=== PATIENT | female | born 1970 | race African-American/Black ===

== ENCOUNTER 2023-09-04 20:45 | Inpatient (IN) | payer MEDICAID, OTHER ==
[~2023-09-04] VITALS: Ht 167.6 cm; Wt 55.3 kg
[~2023-09-04 20:45] MED LIST: QUET50TA GT
[2023-09-04 21:30] VITALS: O2SAT 100
[2023-09-04] MEDS: IV LR 1000 ML 1,000 ML BAG IV ONE ×2 (21:30→23:25)
[2023-09-04] MEDS ORDERED: PIPERACI/TAZO 3.375GM/D5W 50ML PB IV ONE (21:38)
[2023-09-04] MEDS: PIPERACILLIN /TAZOBACTAM 3.375 G in IV D5W 50 ML IV ONE (21:43)
[2023-09-04 21:46] LABS: BASOPHILS % (AUTO) 0.3 % (0.0-2.0); EOSINOPHILS # (AUTO) 0.4 K/uL (0.0-0.7); EOSINOPHILS % (AUTO) 2.4 % (0.0-6.0); HEMATOCRIT 29 % (33-45); HEMOGLOBIN 9.5 g/dL (11.5-14.8); LYMPHOCYTES # (AUTO) 2.1 K/uL (0.8-4.8); LYMPHOCYTES % (AUTO) 13.3 % (20.0-44.0); MEAN CORPUSCULAR HEMOGLOBIN 28 PG (26.0-33.0); MEAN CORPUSCULAR HGB CONC 33 g/dl (31.0-36.0); MEAN CORPUSCULAR VOLUME 86 fL (82-100); MONOCYTES # (AUTO) 1.1 K/uL (0.1-1.30); MONOCYTES % (AUTO) 7.1 % (2.0-12.0); NEUTROPHILS # (AUTO) 12.2 K/uL (1.8-8.9); NEUTROPHILS % (AUTO) 76.9 % (43.0-81.0); PLATELET COUNT (AUTO) 508 K/uL (150-450); RED BLOOD CELL COUNT(AUTO) 3.39 MIL/uL (4.0-5.2); RED CELL DISTRIBUTION WIDTH 14.6 % (11.5-15.0); WHITE BLOOD COUNT (AUTO) 15.9 K/uL (4.3-11.0)
[2023-09-04 21:59] LABS: INR 1.04 (0.91-1.10)
[2023-09-04 22:03] LABS: LACTIC ACID 1.1 mmol/L (0.4-2.0)
[2023-09-04 22:04] LABS: APPEARANCE,URINE CLEAR (CLEAR); BILIRUBIN,URINE NEGATIVE (NEGATIVE); BLOOD, URINE NEGATIVE Ery/uL (NEGATIVE); COLOR,URINE YELLOW (YELLOW); KETONES,URINE NEGATIVE (NEGATIVE); LEUKOCYTE ESTERASE ,URINE 2+ (NEGATIVE); NITRITE, URINE POSITIVE (NEGATIVE); PROTEIN,URINE 1+ mg/dl (NEGATIVE); UGLUCOSE NEGATIVE (NEGATIVE); UROBILINOGEN,URINE 0.2 EU/dL (0.2)
[2023-09-04] MEDS ORDERED: VANCOMYCIN 1 GM /D5W 250 ML PB IV ONE (22:08)
[2023-09-04] MEDS: VANCOMYCIN 1 GM in IV D5W 250 ML IV ONE (22:10)
[2023-09-04 22:13] LABS: ALANINE AMINOTRANSFERASE 229 U/L (12-78); ALBUMIN 2.3 g/dL (3.4-5.0); ALKALINE PHOSPHATASE 159 U/L (46-116); ASPARTATE AMINOTRANSFERASE 146 U/L (15-37); BILIRUBIN,DIRECT 0.1 mg/dL (0.0-0.2); BILIRUBIN,TOTAL 0.2 mg/dL (0.2-1.0); CALCIUM, SERUM 11.3 mg/dL (8.5-10.1); CARBON DIOXIDE 25 mmol/L (21-32); CHLORIDE 99 mmol/L (98-107); CREATININE 2.2 mg/dL (0.6-1.3); GLUCOSE 110 mg/dL (74-106); POTASSIUM 5.7 mmol/L (3.5-5.1); SODIUM SERUM 135 mmol/L (136-145); UREA NITROGEN, BLOOD 68 mg/dL (7-18)
[2023-09-04] MEDS ORDERED: IOHEXOL-300 100 ML VIAL IV ONE (22:22)
[2023-09-04] MEDS ORDERED: IV NS 0.9% 250 ML IV ONE (22:22)
[2023-09-04 22:39] LABS: ADD URINE CULTURE YES; BACTERIA,URINE 3+ /HPF (None Seen); RBC,URINE 0-2 /HPF (0-2)
[2023-09-04 22:40] LABS: MUCUS,URINE Moderate /LPF (None Seen)
[2023-09-04] MEDS ORDERED: ACETAMINOPHEN 650 MG/SUPP.RECT RC ONE (23:32)
[2023-09-04] MEDS: ACETAMINOPHEN 650 MG/SUPP.RECT RC ONE (23:34)
[2023-09-05] VITALS (8 sets, daily range): BP systolic 87–92; BP diastolic 60–76; TEMP 98.7–98.9; O2SAT 92–100
[2023-09-05] MEDS ORDERED: GABA-532 GT (04:19)
[2023-09-05] MEDS ORDERED: POLY17PO4 GT (04:19)
[2023-09-05] MEDS ORDERED: HYDR-4076 GT (04:19)
[2023-09-05] MEDS ORDERED: LISI20TA30 GT (04:19)
[2023-09-05] MEDS ORDERED: DOCU-270 GT (04:19)
[2023-09-05] MEDS ORDERED: ALBU2.5V13 NEB (04:19)
[2023-09-05] MEDS ORDERED: AMLO5TAB4 GT (04:19)
[2023-09-05] MEDS: PIPERACILLIN /TAZOBACTAM 3.375 G in IV D5W 50 ML IV SCH (08:00)
[2023-09-05 08:05] LABS: BASOPHILS # (AUTO) 0.1 K/uL (0.0-0.2); BASOPHILS % (AUTO) 0.3 % (0.0-2.0); EOSINOPHILS # (AUTO) 0.1 K/uL (0.0-0.7); EOSINOPHILS % (AUTO) 0.3 % (0.0-6.0); HEMATOCRIT 26 % (33-45); HEMOGLOBIN 8.2 g/dL (11.5-14.8); LYMPHOCYTES # (AUTO) 1.5 K/uL (0.8-4.8); LYMPHOCYTES % (AUTO) 4.5 % (20.0-44.0); MEAN CORPUSCULAR HEMOGLOBIN 28 PG (26.0-33.0); MEAN CORPUSCULAR HGB CONC 32 g/dl (31.0-36.0); MEAN CORPUSCULAR VOLUME 87 fL (82-100); MONOCYTES # (AUTO) 2.4 K/uL (0.1-1.30); MONOCYTES % (AUTO) 7.4 % (2.0-12.0); NEUTROPHILS % (AUTO) 87.5 % (43.0-81.0); PLATELET COUNT (AUTO) 386 K/uL (150-450); RED BLOOD CELL COUNT(AUTO) 2.95 MIL/uL (4.0-5.2); RED CELL DISTRIBUTION WIDTH 14.4 % (11.5-15.0)
[2023-09-05 08:17] LABS: WHITE BLOOD COUNT (AUTO) 33.1 K/uL (4.3-11.0)
[2023-09-05 08:25] LABS: CALCIUM, SERUM 10.5 mg/dL (8.5-10.1); CREATININE 1.9 mg/dL (0.6-1.3); POTASSIUM 4.9 mmol/L (3.5-5.1)
[2023-09-05] MEDS ORDERED: ACETAMINOPHEN 650 MG/SUPP.RECT RC ONE (08:43)
[2023-09-05] MEDS: ACETAMINOPHEN 325 MG TABLET PO PRN (09:04)
[2023-09-05] MEDS ORDERED: ACET325T53 PO (09:14)
[2023-09-05] MEDS ORDERED: BISA10SU11 RC (09:14)
[2023-09-05] MEDS ORDERED: HEPA50008 SQ (09:14)
[2023-09-05] MEDS ORDERED: GABA250S2 GT (09:14)
[2023-09-05] MEDS ORDERED: CHLO473M5 PO (09:14)
[2023-09-05] MEDS ORDERED: ACET-637 PO (09:14)
[2023-09-05] MEDS ORDERED: MAGN400O6 GT (09:14)
[2023-09-05 12:28] LABS: BAND % (MANUAL) 16 % (0.0-5.0); EOSINOPHILS % (MANUAL) 2 % (0-4); LYMPHOCYTES % (MANUAL) 2 % (16-48); MONOCYTES % (MANUAL) 10 % (0-11.0); NEUTROPHILS % (MANUAL) 70 (42-76)
[2023-09-05 12:29] LABS: PLATELET ESTIMATE ADEQUATE
[2023-09-05] MEDS: IV NS 0.9% 1,000 ML IV PRN (13:14)
[2023-09-05] MEDS: IV NS 0.9% 500 ML IV ONE (17:15)
[2023-09-06] VITALS (27 sets, daily range): BP systolic 75–123; BP diastolic 57–83; TEMP 97.5–101.8; O2SAT 94–100
[2023-09-06] MEDS: IV NS 0.9% 1,000 ML IV ONE (02:03)
[2023-09-06] MEDS: VANCOMYCIN HCL 1.25 GM in IV D5W 250 ML IV SCH (08:47)
[2023-09-06 09:14] LABS: BASOPHILS % (AUTO) 0.2 % (0.0-2.0); BILIRUBIN,TOTAL 0.4 mg/dL (0.2-1.0); CALCIUM, SERUM 9.4 mg/dL (8.5-10.1); CREATININE 2.1 mg/dL (0.6-1.3); EOSINOPHILS # (AUTO) 0.3 K/uL (0.0-0.7); EOSINOPHILS % (AUTO) 1.1 % (0.0-6.0); HEMATOCRIT 22 % (33-45); LYMPHOCYTES # (AUTO) 1.6 K/uL (0.8-4.8); LYMPHOCYTES % (AUTO) 6.3 % (20.0-44.0); MAGNESIUM 1.9 mg/dL (1.8-2.4); MEAN CORPUSCULAR HEMOGLOBIN 28 PG (26.0-33.0); MEAN CORPUSCULAR HGB CONC 32 g/dl (31.0-36.0); MEAN CORPUSCULAR VOLUME 88 fL (82-100); MONOCYTES # (AUTO) 2.1 K/uL (0.1-1.30); MONOCYTES % (AUTO) 8.2 % (2.0-12.0); NEUTROPHILS # (AUTO) 21.7 K/uL (1.8-8.9); NEUTROPHILS % (AUTO) 84.2 % (43.0-81.0); PHOSPHORUS 4.1 mg/dL (2.5-4.9); PLATELET COUNT (AUTO) 328 K/uL (150-450); POTASSIUM 4.3 mmol/L (3.5-5.1); RED BLOOD CELL COUNT(AUTO) 2.47 MIL/uL (4.0-5.2); RED CELL DISTRIBUTION WIDTH 14.5 % (11.5-15.0); TOTAL PROTEIN, SERUM 7.2 g/dL (6.4-8.2); WHITE BLOOD COUNT (AUTO) 25.8 K/uL (4.3-11.0)
[2023-09-06 09:23] LABS: ALBUMIN 1.4 g/dL (3.4-5.0); HEMOGLOBIN 6.9 g/dL (11.5-14.8)
[2023-09-06 12:33] LABS: ANISOCYTOSIS 1+; BAND % (MANUAL) 11 % (0.0-5.0); BASOPHILS % (MANUAL) 0 % (0.0-2.0); EOSINOPHILS % (MANUAL) 2 % (0-4); HYPOCHROMASIA 1+; LYMPHOCYTES % (MANUAL) 5 % (16-48); MONOCYTES % (MANUAL) 9 % (0-11.0); NEUTROPHILS % (MANUAL) 73 (42-76); PLATELET ESTIMATE ADEQUATE; STOMATOCYTES 1+
[2023-09-06] MEDS: JEVITY 1.2 CAL 1,000 ML BOTTLE GT PRN (14:27)
[2023-09-06] MEDS ORDERED: MEROPENEM 500 MG in IV NS 0.9% 50 ML IV SCH (21:00)
[2023-09-06] MEDS: MEROPENEM 1 G in IV NS 0.9% 100 ML IV SCH (23:24)
[2023-09-07] VITALS (12 sets, daily range): BP systolic 93–117; BP diastolic 70–86; TEMP 97.8–98.7; O2SAT 96–100
[2023-09-07 08:04] LABS: BASOPHILS % (AUTO) 0.3 % (0.0-2.0); EOSINOPHILS # (AUTO) 0.4 K/uL (0.0-0.7); EOSINOPHILS % (AUTO) 2.2 % (0.0-6.0); HEMATOCRIT 23 % (33-45); HEMOGLOBIN 7.2 g/dL (11.5-14.8); LYMPHOCYTES # (AUTO) 1.6 K/uL (0.8-4.8); LYMPHOCYTES % (AUTO) 8.9 % (20.0-44.0); MEAN CORPUSCULAR HEMOGLOBIN 27 PG (26.0-33.0); MEAN CORPUSCULAR HGB CONC 32 g/dl (31.0-36.0); MEAN CORPUSCULAR VOLUME 85 fL (82-100); MONOCYTES # (AUTO) 1.6 K/uL (0.1-1.30); MONOCYTES % (AUTO) 8.6 % (2.0-12.0); NEUTROPHILS # (AUTO) 14.6 K/uL (1.8-8.9); PLATELET COUNT (AUTO) 354 K/uL (150-450); RED BLOOD CELL COUNT(AUTO) 2.68 MIL/uL (4.0-5.2); RED CELL DISTRIBUTION WIDTH 16.9 % (11.5-15.0); WHITE BLOOD COUNT (AUTO) 18.2 K/uL (4.3-11.0)
[2023-09-07] MEDS: VANCOMYCIN 1 GM in IV D5W 250 ML IV SCH (08:07)
[2023-09-07 08:41] LABS: BILIRUBIN,TOTAL 0.2 mg/dL (0.2-1.0); CALCIUM, SERUM 9.4 mg/dL (8.5-10.1); CREATININE 1.5 mg/dL (0.6-1.3); MAGNESIUM 1.8 mg/dL (1.8-2.4); PHOSPHORUS 2.8 mg/dL (2.5-4.9); POTASSIUM 4.1 mmol/L (3.5-5.1); TOTAL PROTEIN, SERUM 6.7 g/dL (6.4-8.2)
[2023-09-07 08:54] LABS: ALBUMIN 1.3 g/dL (3.4-5.0)
[2023-09-07 18:12] LABS: APPEARANCE,URINE SLIGHTLY CLOUDY (CLEAR); BILIRUBIN,URINE NEGATIVE (NEGATIVE); BLOOD, URINE 1+ Ery/uL (NEGATIVE); COLOR,URINE YELLOW (YELLOW); KETONES,URINE NEGATIVE (NEGATIVE); LEUKOCYTE ESTERASE ,URINE NEGATIVE (NEGATIVE); NITRITE, URINE NEGATIVE (NEGATIVE); PROTEIN,URINE 1+ mg/dl (NEGATIVE); UGLUCOSE NEGATIVE (NEGATIVE)
[2023-09-07 18:29] LABS: ADD URINE CULTURE NO; BACTERIA,URINE Few /HPF (None Seen); SQUAMOUS EPITHELIAL CELL,UR Few /HPF (None Seen); WBC,URINE 0-2 /HPF (0-3)
[2023-09-07 18:52] LABS: EOSINOPHIL,URINE None Seen
[2023-09-07 19:21] LABS: CREATININE, URINE 50.2 MG/DL (30.0-125.0); URINE TOTAL PROTEIN 146.7 mg/dL (0-11.9)
[2023-09-08] VITALS (12 sets, daily range): BP systolic 91–133; BP diastolic 68–94; TEMP 98–98.4; O2SAT 97–100
[2023-09-08 07:33] LABS: BASOPHILS # (AUTO) 0.1 K/uL (0.0-0.2); BASOPHILS % (AUTO) 0.9 % (0.0-2.0); EOSINOPHILS # (AUTO) 0.4 K/uL (0.0-0.7); EOSINOPHILS % (AUTO) 4.5 % (0.0-6.0); HEMATOCRIT 28 % (33-45); HEMOGLOBIN 9.3 g/dL (11.5-14.8); LYMPHOCYTES # (AUTO) 1.3 K/uL (0.8-4.8); LYMPHOCYTES % (AUTO) 14.7 % (20.0-44.0); MEAN CORPUSCULAR HEMOGLOBIN 27 PG (26.0-33.0); MEAN CORPUSCULAR HGB CONC 33 g/dl (31.0-36.0); MEAN CORPUSCULAR VOLUME 83 fL (82-100); MONOCYTES # (AUTO) 0.5 K/uL (0.1-1.30); MONOCYTES % (AUTO) 5.5 % (2.0-12.0); NEUTROPHILS # (AUTO) 6.5 K/uL (1.8-8.9); NEUTROPHILS % (AUTO) 74.4 % (43.0-81.0); PLATELET COUNT (AUTO) 329 K/uL (150-450); RED BLOOD CELL COUNT(AUTO) 3.41 MIL/uL (4.0-5.2); RED CELL DISTRIBUTION WIDTH 16.8 % (11.5-15.0); WHITE BLOOD COUNT (AUTO) 8.7 K/uL (4.3-11.0)
[2023-09-08 08:14] LABS: BILIRUBIN,TOTAL 0.2 mg/dL (0.2-1.0); CALCIUM, SERUM 9.5 mg/dL (8.5-10.1); CREATININE 1.3 mg/dL (0.6-1.3); MAGNESIUM 1.6 mg/dL (1.8-2.4); PHOSPHORUS 3.1 mg/dL (2.5-4.9); POTASSIUM 4.1 mmol/L (3.5-5.1); TOTAL PROTEIN, SERUM 6.6 g/dL (6.4-8.2)
[2023-09-08 08:37] LABS: ALBUMIN 1.3 g/dL (3.4-5.0)
[2023-09-08 09:07] LABS: CALCIUM, SERUM 8.6 mg/dL (8.5-10.1); CREATININE 1.3 mg/dL (0.6-1.3); POTASSIUM 4.2 mmol/L (3.5-5.1)
[2023-09-08] MEDS: Magnesium 1GM/D5W 100ML PREMIX 100 ML IV SCH (11:09)
[2023-09-09] VITALS (13 sets, daily range): BP systolic 131–148; BP diastolic 85–99; TEMP 97.7–98.2; O2SAT 97–100
[2023-09-09 06:34] LABS: BASOPHILS % (AUTO) 0.4 % (0.0-2.0); EOSINOPHILS # (AUTO) 0.4 K/uL (0.0-0.7); EOSINOPHILS % (AUTO) 4.8 % (0.0-6.0); HEMATOCRIT 30 % (33-45); HEMOGLOBIN 9.8 g/dL (11.5-14.8); LYMPHOCYTES # (AUTO) 1.5 K/uL (0.8-4.8); LYMPHOCYTES % (AUTO) 16.4 % (20.0-44.0); MEAN CORPUSCULAR HEMOGLOBIN 27 PG (26.0-33.0); MEAN CORPUSCULAR HGB CONC 33 g/dl (31.0-36.0); MEAN CORPUSCULAR VOLUME 84 fL (82-100); MONOCYTES # (AUTO) 0.7 K/uL (0.1-1.30); NEUTROPHILS # (AUTO) 6.3 K/uL (1.8-8.9); NEUTROPHILS % (AUTO) 70.4 % (43.0-81.0); PLATELET COUNT (AUTO) 348 K/uL (150-450); RED BLOOD CELL COUNT(AUTO) 3.63 MIL/uL (4.0-5.2); RED CELL DISTRIBUTION WIDTH 16.3 % (11.5-15.0)
[2023-09-09 07:11] LABS: ALBUMIN 1.5 g/dL (3.4-5.0); BILIRUBIN,TOTAL 0.2 mg/dL (0.2-1.0); CALCIUM, SERUM 9.2 mg/dL (8.5-10.1); CREATININE 1.1 mg/dL (0.6-1.3); POTASSIUM 4.1 mmol/L (3.5-5.1); TOTAL PROTEIN, SERUM 7.2 g/dL (6.4-8.2)
[2023-09-09] MEDS: D5W IV SCH (08:14)
[2023-09-09] MEDS: VANCOMYCIN IV SCH (08:14)
[2023-09-09 13:12] LABS: *SPE A/G RATIO 0.5 (0.7-1.7); *SPE ALBUMIN 1.8 g/dL (2.9-4.4); *SPE ALPHA-1-GLOBULIN 0.4 g/dL (0.0-0.4); *SPE BETA GLOBULIN 0.9 g/dL (0.7-1.3); *SPE GLOBULIN, TOTAL 3.8 g/dL (2.2-3.9); *SPE M-SPIKE Not Observed g/dL (Not Observed); *SPE PROTEIN TOTAL 5.6 g/dL (6.0-8.5); *SPEGAMMA GLOBULIN 1.5 g/dL (0.4-1.8)
[2023-09-10] VITALS (13 sets, daily range): BP systolic 103–152; BP diastolic 73–103; TEMP 97.5–98.4; O2SAT 97–100
[2023-09-10 06:21] LABS: BASOPHILS % (AUTO) 0.4 % (0.0-2.0); EOSINOPHILS # (AUTO) 0.5 K/uL (0.0-0.7); EOSINOPHILS % (AUTO) 5.6 % (0.0-6.0); HEMATOCRIT 30 % (33-45); HEMOGLOBIN 9.8 g/dL (11.5-14.8); LYMPHOCYTES # (AUTO) 1.4 K/uL (0.8-4.8); LYMPHOCYTES % (AUTO) 16.1 % (20.0-44.0); MEAN CORPUSCULAR HEMOGLOBIN 27 PG (26.0-33.0); MEAN CORPUSCULAR HGB CONC 32 g/dl (31.0-36.0); MEAN CORPUSCULAR VOLUME 84 fL (82-100); MONOCYTES # (AUTO) 0.8 K/uL (0.1-1.30); MONOCYTES % (AUTO) 9.4 % (2.0-12.0); NEUTROPHILS # (AUTO) 6.1 K/uL (1.8-8.9); NEUTROPHILS % (AUTO) 68.5 % (43.0-81.0); PLATELET COUNT (AUTO) 375 K/uL (150-450); RED BLOOD CELL COUNT(AUTO) 3.59 MIL/uL (4.0-5.2); RED CELL DISTRIBUTION WIDTH 16.6 % (11.5-15.0); WHITE BLOOD COUNT (AUTO) 8.9 K/uL (4.3-11.0)
[2023-09-10 06:47] LABS: ALBUMIN 1.5 g/dL (3.4-5.0); BILIRUBIN,TOTAL 0.2 mg/dL (0.2-1.0); CALCIUM, SERUM 9.2 mg/dL (8.5-10.1); POTASSIUM 4.3 mmol/L (3.5-5.1); TOTAL PROTEIN, SERUM 6.9 g/dL (6.4-8.2)
[2023-09-10] MEDS: PROSOURCE / PROSTAT (PYXIS) 30 ML UDC GT SCH (08:28)
[2023-09-10] MEDS: MEROPENEM 1 G in IV NS 0.9% 100 ML IV SCH (20:07)
[2023-09-10] MEDS: VANCOMYCIN IV SCH (21:01)
[2023-09-10] MEDS: D5W IV SCH (21:01)
[2023-09-11] VITALS (12 sets, daily range): BP systolic 118–156; BP diastolic 86–108; TEMP 97.4–98.4; O2SAT 98–100
[2023-09-11 07:19] LABS: BASOPHILS # (AUTO) 0.1 K/uL (0.0-0.2); BASOPHILS % (AUTO) 0.6 % (0.0-2.0); EOSINOPHILS # (AUTO) 0.4 K/uL (0.0-0.7); EOSINOPHILS % (AUTO) 4.7 % (0.0-6.0); HEMATOCRIT 31 % (33-45); HEMOGLOBIN 10.1 g/dL (11.5-14.8); LYMPHOCYTES # (AUTO) 1.6 K/uL (0.8-4.8); LYMPHOCYTES % (AUTO) 19.6 % (20.0-44.0); MEAN CORPUSCULAR HEMOGLOBIN 27 PG (26.0-33.0); MEAN CORPUSCULAR HGB CONC 33 g/dl (31.0-36.0); MEAN CORPUSCULAR VOLUME 83 fL (82-100); MONOCYTES # (AUTO) 0.6 K/uL (0.1-1.30); NEUTROPHILS # (AUTO) 5.6 K/uL (1.8-8.9); NEUTROPHILS % (AUTO) 68.1 % (43.0-81.0); PLATELET COUNT (AUTO) 377 K/uL (150-450); RED BLOOD CELL COUNT(AUTO) 3.71 MIL/uL (4.0-5.2); RED CELL DISTRIBUTION WIDTH 16.4 % (11.5-15.0); WHITE BLOOD COUNT (AUTO) 8.3 K/uL (4.3-11.0)
[2023-09-11 07:50] LABS: ALBUMIN 1.8 g/dL (3.4-5.0); BILIRUBIN,TOTAL 0.2 mg/dL (0.2-1.0); CALCIUM, SERUM 9.3 mg/dL (8.5-10.1); POTASSIUM 4.4 mmol/L (3.5-5.1); TOTAL PROTEIN, SERUM 7.5 g/dL (6.4-8.2)
[2023-09-12] VITALS (9 sets, daily range): BP systolic 124–151; BP diastolic 92–96; TEMP 97–98.2; O2SAT 94–100
[2023-09-12 06:55] LABS: BASOPHILS % (AUTO) 0.4 % (0.0-2.0); EOSINOPHILS # (AUTO) 0.4 K/uL (0.0-0.7); EOSINOPHILS % (AUTO) 5.1 % (0.0-6.0); HEMATOCRIT 30 % (33-45); LYMPHOCYTES # (AUTO) 1.7 K/uL (0.8-4.8); LYMPHOCYTES % (AUTO) 19.6 % (20.0-44.0); MEAN CORPUSCULAR HEMOGLOBIN 27 PG (26.0-33.0); MEAN CORPUSCULAR HGB CONC 33 g/dl (31.0-36.0); MEAN CORPUSCULAR VOLUME 83 fL (82-100); MONOCYTES # (AUTO) 0.8 K/uL (0.1-1.30); MONOCYTES % (AUTO) 8.9 % (2.0-12.0); NEUTROPHILS # (AUTO) 5.6 K/uL (1.8-8.9); PLATELET COUNT (AUTO) 417 K/uL (150-450); RED BLOOD CELL COUNT(AUTO) 3.68 MIL/uL (4.0-5.2); RED CELL DISTRIBUTION WIDTH 16.1 % (11.5-15.0); WHITE BLOOD COUNT (AUTO) 8.5 K/uL (4.3-11.0)
[2023-09-12] MEDS ORDERED: VANC750P13 IV (07:24)
[2023-09-12] MEDS ORDERED: MERO1PIG IV (07:24)
[2023-09-12 07:30] LABS: ALBUMIN 1.8 g/dL (3.4-5.0); BILIRUBIN,TOTAL 0.2 mg/dL (0.2-1.0); CALCIUM, SERUM 9.6 mg/dL (8.5-10.1); POTASSIUM 4.7 mmol/L (3.5-5.1); TOTAL PROTEIN, SERUM 7.5 g/dL (6.4-8.2)
== END 2023-09-12 16:00 | DRG 720 ==
LOC: ER 20:56 → TRANSITION 09-05 04:55 → TELE1 09-05 11:24
PROVIDERS: ADMIT Internal Medicine; ATTEND Internal Medicine
PROC: 30233N1 Transfusion of Nonautologous Red Blood Cells into Peripheral Vein, Percutaneous Approach (ICD-10-PCS; principal; 2023-09-06)
DX: A41.9 Sepsis, unspecified organism (principal); J85.0 Gangrene and necrosis of lung; R40.3 Persistent vegetative state; G92.8 Other toxic encephalopathy; N17.9 Acute kidney failure, unspecified; J96.10 Chronic respiratory failure, unspecified whether with hypoxia or hypercapnia; G91.9 Hydrocephalus, unspecified; R65.20 Severe sepsis without septic shock; R04.2 Hemoptysis; Z93.0 Tracheostomy status; N39.0 Urinary tract infection, site not specified; E86.0 Dehydration; Z93.1 Gastrostomy status; G40.909 Epilepsy, unspecified, not intractable, without status epilepticus; Z86.73 Personal history of transient ischemic attack (TIA), and cerebral infarction without residual deficits; E83.52 Hypercalcemia; D64.9 Anemia, unspecified; R13.10 Dysphagia, unspecified; I10 Essential (primary) hypertension; R91.8 Other nonspecific abnormal finding of lung field
CPT/HCPCS: 31720; 36415; 71045-TC; 71260-TC; 76770-TC; 80048-TC; 80053-TC; 80076-TC; 80202-TC; 81001; 82550-TC; 82570-TC; 82607-TC; 82728-TC; 83540-TC; 83605-TC; 83735-TC; 83970; 84100-TC; 84155; 84165; 84300-TC; 84484-TC; 85025-TC; 85730-TC; 86850-TC; 87040-TC; 87086-TC; 94640-TC; 94760-TC; 94762-TC; 94799-TC; A4223; A4623; A7526; G0378; J2185; J2543; J3370; J3371; J3475; J7030; J7040; J7050; J7060; J7070; J7120; P9016; Q9967

== ENCOUNTER 2024-07-12 20:42 | Inpatient (IN) | payer MEDICAID ==
[~2024-07-12] VITALS: Ht 167.6 cm; Wt 67.1 kg
[~2024-07-12 20:42] MED LIST changes: +ACET-637 PO; +ACET325T53 PO; +ALBU2.5V13 NEB; +AMLO5TAB4 GT; +BISA10SU11 RC; +CHLO473M5 PO; +DOCU-270 GT; +GABA250S2 GT; +HEPA50008 SQ; +HYDR-4076 GT; +LISI20TA30 GT; +MAGN400O6 GT; +MERO1PIG IV; +POLY17PO4 GT; +VANC750P13 IV
[2024-07-12] MEDS ORDERED: ACETAMINOPHEN ES 500 MG TABLET ONE (21:19)
[2024-07-12] MEDS ORDERED: CEFEPIME 1 GM VIAL ONE (21:19)
[2024-07-12] MEDS ORDERED: VANCOMYCIN 1 GM /D5W 250 ML PB IV ONE (21:19)
[2024-07-12] MEDS: VANCOMYCIN 1 GM in IV D5W 250 ML IV ONE (21:20)
[2024-07-12] MEDS: IV NS 0.9% 1,000 ML BAG IV ONE (21:20)
[2024-07-12] MEDS: CEFEPIME 1 GM in IV D5W 50 ML IV ONE (21:20)
[2024-07-12 21:21] LABS: BASOPHILS % (AUTO) 0.5 % (0.0-2.0); EOSINOPHILS # (AUTO) 0.1 K/uL (0.0-0.7); EOSINOPHILS % (AUTO) 1.2 % (0.0-6.0); HEMATOCRIT 36 % (33-45); HEMOGLOBIN 12.2 g/dL (11.5-14.8); LYMPHOCYTES # (AUTO) 0.8 K/uL (0.8-4.8); LYMPHOCYTES % (AUTO) 15.7 % (20.0-44.0); MEAN CORPUSCULAR HEMOGLOBIN 29 PG (26.0-33.0); MEAN CORPUSCULAR HGB CONC 34 g/dl (31.0-36.0); MEAN CORPUSCULAR VOLUME 85 fL (82-100); MONOCYTES # (AUTO) 0.6 K/uL (0.1-1.30); MONOCYTES % (AUTO) 12.3 % (2.0-12.0); NEUTROPHILS # (AUTO) 3.5 K/uL (1.8-8.9); NEUTROPHILS % (AUTO) 70.3 % (43.0-81.0); PLATELET COUNT (AUTO) 229 K/uL (150-450); RED BLOOD CELL COUNT(AUTO) 4.23 MIL/uL (4.0-5.2); RED CELL DISTRIBUTION WIDTH 12.8 % (11.5-15.0); WHITE BLOOD COUNT (AUTO) 4.9 K/uL (4.3-11.0)
[2024-07-12] MEDS: ACETAMINOPHEN ES 500 MG TABLET PO ONE (21:21)
[2024-07-12 21:33] LABS: INR 1.02 (0.91-1.10); PARTIAL THROMBOPLASTIN TIME 34.1 SEC (24.3-34.3); PROTHROMBIN TIME 10.8 SECS (9.2-11.1)
[2024-07-12 21:38] LABS: LACTIC ACID 0.7 mmol/L (0.4-2.0)
[2024-07-12 21:41] LABS: ALANINE AMINOTRANSFERASE 108 U/L (12-78); ALKALINE PHOSPHATASE 93 U/L (46-116); ASPARTATE AMINOTRANSFERASE 76 U/L (15-37); BILIRUBIN,DIRECT 0.1 mg/dL (0.0-0.2); BILIRUBIN,TOTAL 0.3 mg/dL (0.2-1.0); CALCIUM, SERUM 10.2 mg/dL (8.5-10.1); CARBON DIOXIDE 27 mmol/L (21-32); CHLORIDE 103 mmol/L (98-107); CREATININE 1.4 mg/dL (0.6-1.3); GLUCOSE 88 mg/dL (74-106); POTASSIUM 4.8 mmol/L (3.5-5.1); SODIUM SERUM 138 mmol/L (136-145); TOTAL PROTEIN, SERUM 9.3 g/dL (6.4-8.2); UREA NITROGEN, BLOOD 26 mg/dL (7-18)
[2024-07-12 22:21] LABS: APPEARANCE,URINE CLEAR (CLEAR); BILIRUBIN,URINE NEGATIVE (NEGATIVE); BLOOD, URINE NEGATIVE Ery/uL (NEGATIVE); COLOR,URINE YELLOW (YELLOW); KETONES,URINE NEGATIVE (NEGATIVE); LEUKOCYTE ESTERASE ,URINE NEGATIVE (NEGATIVE); NITRITE, URINE POSITIVE (NEGATIVE); PROTEIN,URINE TRACE mg/dl (NEGATIVE); UGLUCOSE NEGATIVE (NEGATIVE); UROBILINOGEN,URINE 0.2 EU/dL (0.2)
[2024-07-12 22:57] LABS: ADD URINE CULTURE YES; BACTERIA,URINE 1+ /HPF (None Seen); RBC,URINE 0-2 /HPF (0-2); WBC,URINE 0-2 /HPF (0-3)
[2024-07-12 22:58] LABS: MUCUS,URINE Few /LPF (None Seen)
[2024-07-12] MEDS ORDERED: OSELTAMIVIR PHOSPHATE 75 MG CAPSULE ONE (22:58)
[2024-07-12] MEDS: OSELTAMIVIR PHOSPHATE 75 MG CAPSULE PO ONE (23:00)
[2024-07-12] MEDS ORDERED: OSELTAMIVIR PHOSPHATE SUSP 6 MG/ML BOTTLE PO ONE (23:00)
[2024-07-13] VITALS (7 sets, daily range): BP systolic 133; BP diastolic 90–99; TEMP 98.1–98.8; O2SAT 94–99
[2024-07-13] MEDS ORDERED: BISACODYL SUPP (10 MG) 10 MG/SUPP.RECT SUPP.RECT RC PRN ×2 (01:30)
[2024-07-13] MEDS ORDERED: hydrALAZINE HCL 25 MG TABLET PO PRN (02:00)
[2024-07-13] MEDS ORDERED: MAGNESIUM HYDROXIDE 30 ML UDC PO PRN (02:00)
[2024-07-13] MEDS ORDERED: NA PHOS,M-B/NA PHOS,DI-BA 1 EA ENEMA RC PRN (02:00)
[2024-07-13] MEDS ORDERED: ACETAMINOPHEN 650 MG/20.3 ML UDC GT PRN (02:00)
[2024-07-13] MEDS ORDERED: IBUPROFEN 400 MG TABLET PO PRN (02:00)
[2024-07-13 05:54] LABS: BASOPHILS % (AUTO) 0.6 % (0.0-2.0); EOSINOPHILS # (AUTO) 0.1 K/uL (0.0-0.7); EOSINOPHILS % (AUTO) 1.7 % (0.0-6.0); HEMATOCRIT 32 % (33-45); MEAN CORPUSCULAR HEMOGLOBIN 29 PG (26.0-33.0); MEAN CORPUSCULAR HGB CONC 35 g/dl (31.0-36.0); MEAN CORPUSCULAR VOLUME 85 fL (82-100); MONOCYTES # (AUTO) 0.9 K/uL (0.1-1.30); MONOCYTES % (AUTO) 23.7 % (2.0-12.0); NEUTROPHILS # (AUTO) 1.8 K/uL (1.8-8.9); PLATELET COUNT (AUTO) 182 K/uL (150-450); RED BLOOD CELL COUNT(AUTO) 3.74 MIL/uL (4.0-5.2); RED CELL DISTRIBUTION WIDTH 12.9 % (11.5-15.0); WHITE BLOOD COUNT (AUTO) 3.7 K/uL (4.3-11.0)
[2024-07-13 06:03] LABS: CREATININE 1.2 mg/dL (0.6-1.3); POTASSIUM 4.2 mmol/L (3.5-5.1)
[2024-07-13 06:32] LABS: EOSINOPHILS % (MANUAL) 2 % (0-4); LYMPHOCYTES % (MANUAL) 29 % (16-48); MONOCYTES % (MANUAL) 24 % (0-11.0); NEUTROPHILS % (MANUAL) 45 (42-76)
[2024-07-13 06:33] LABS: PLATELET ESTIMATE ADEQUATE
[2024-07-13] MEDS: ALBUTEROL FS 2.5 MG/3 ML VIAL.NEB NEB SCH (07:00)
[2024-07-13] MEDS ORDERED: LACT100027 GT (08:01)
[2024-07-13] MEDS ORDERED: NA P133E RC (08:01)
[2024-07-13] MEDS ORDERED: ALBU2.5V38 NEB (08:01)
[2024-07-13] MEDS ORDERED: ACET160E36 GT (08:01)
[2024-07-13] MEDS ORDERED: IBUP-1955 GT (08:01)
[2024-07-13] MEDS ORDERED: ALBUTEROL FS 2.5 MG/3 ML VIAL.NEB ONE (08:08)
[2024-07-13] MEDS ORDERED: DIVALPROEX SODIUM 500 MG TABLET.DR PO SCH (09:00)
[2024-07-13] MEDS ORDERED: ARIPIPRAZOLE 2 MG TABLET PO SCH (09:00)
[2024-07-13] MEDS: ALBUTEROL FS 2.5 MG/3 ML VIAL.NEB NEB PRN (09:33)
[2024-07-13] MEDS: LISINOPRIL (20MG) 20 MG TABLET PO SCH (11:30)
[2024-07-13] MEDS: OSELTAMIVIR PHOSPHATE 75 MG CAPSULE PO SCH (11:30)
[2024-07-13] MEDS ORDERED: OSEL75CA PO (13:32)
[2024-07-13] MEDS: JEVITY 1.2 CAL 1,000 ML BOTTLE GT PRN (17:25)
[2024-07-13] MEDS: AMLODIPINE BESYLATE 5 MG TABLET PO SCH (17:29)
[2024-07-13] MEDS: DOCUSATE SODIUM LIQ 100 MG/10 ML UDC GT SCH (17:29)
[2024-07-13] MEDS: GABAPENTIN 100 MG CAPSULE PO SCH (21:54)
[2024-07-14 07:30] VITALS: BP 112/77; TEMP 98.6; O2SAT 97
[2024-07-14] MEDS ORDERED: OSEL75CA PO (08:49)
[2024-07-14 16:00] VITALS: BP 109/80; TEMP 98.8; O2SAT 96
[2024-07-14 20:51] VITALS: BP 102/82; TEMP 98.8; O2SAT 96
[2024-07-15] VITALS (7 sets, daily range): BP systolic 103–115; BP diastolic 81–94; TEMP 97.9–98.1; O2SAT 94–100
[2024-07-16 07:30] VITALS: BP 111/79; TEMP 98.2; O2SAT 99
[2024-07-16 08:12] VITALS: O2SAT 94
[2024-07-16 13:45] VITALS: O2SAT 96
[2024-07-16 16:06] VITALS: BP 109/82; TEMP 98.1; O2SAT 96
[2024-07-16 20:00] VITALS: BP 110/79; TEMP 98.2; O2SAT 100
[2024-07-17 07:25] VITALS: O2SAT 97
[2024-07-17 07:35] VITALS: O2SAT 97; O2SAT 98
[2024-07-17 08:00] VITALS: BP 121/97; TEMP 97.3; O2SAT 99
[2024-07-17 08:21] VITALS: BP 121/97
== END 2024-07-17 13:22 | DRG 723 ==
LOC: ER 20:44 → TRANSITION 07-13 04:12 → MED 07-13 08:47
PROVIDERS: ADMIT Internal Medicine; ATTEND Internal Medicine
DX: J10.89 Influenza due to other identified influenza virus with other manifestations (principal); G93.49 Other encephalopathy; I10 Essential (primary) hypertension; Z86.73 Personal history of transient ischemic attack (TIA), and cerebral infarction without residual deficits; Z93.0 Tracheostomy status; Z93.1 Gastrostomy status; Z20.822 Contact with and (suspected) exposure to COVID-19; Z86.69 Personal history of other diseases of the nervous system and sense organs
CPT/HCPCS: 36415; 71045-TC; 80048-TC; 80076-TC; 81001; 83605-TC; 84484-TC; 85025-TC; 85730-TC; 87040-TC; 87081-TC; 87086-TC; 94760-TC; 94799-TC; G0378; J0692; J3370; J7030; J7060